=== PATIENT | female | born 1985 | race Two or more races ===

== ENCOUNTER 2017-12-26 04:35 | Emergency (ER) | payer MEDICAID ==
[~2017-12-26] VITALS: Ht 157.5 cm; Wt 70.3 kg
--- NOTE | 2017-12-26 05:48 | NUR ---
Patient discharged to home in stable conditon. Written and verbal after care instructions given. Patient verbalizes understanding of instructions.
[2017-12-26 05:49] VITALS: BP 158/94
== END 2017-12-26 05:50 | disposition home or self-care (01) ==
LOC: ER 04:41 → EDSEX 04:41 → ER 05:50
DX: R06.09 Other forms of dyspnea (principal); I10 Essential (primary) hypertension; F17.210 Nicotine dependence, cigarettes, uncomplicated
CPT/HCPCS: 71045; 93005; 99284; A4663